=== PATIENT | male | born 1975 | race Caucasian/White ===

== ENCOUNTER 2017-07-01 20:24 | Emergency (ER) | payer MEDICAID, OTHER ==
[~2017-07-01] VITALS: Ht 188 cm; Wt 99.8 kg
[2017-07-01] MEDS ORDERED: LORazepam 2MG/ML-1ML VIAL IV ONE (21:00)
[2017-07-01] MEDS ORDERED: SODIUM CHLORIDE 0.9% 1,000 ML IV ONE ×2 (21:00→23:45)
[2017-07-01 21:18] LABS: Urine Bilirubin Negative (Negative); Urine Blood TRACE /uL (Negative); Urine Color Yellow (Yellow); Urine Glucose Normal (Normal); Urine Ketone 4+ (Negative); Urine Mucus FEW (None Seen); Urine Nitrite Negative (Negative); Urine RBC 54 /hpf (0 - 3); Urine Squamous Epithelial Cell FEW /hpf (<5); Urine Urobilinogen Normal (Negative)
[2017-07-01 21:38] LABS: Basophils # (auto) 0 uL; Basophils % (auto) 0.1 % (0.0-2.0); CONDITION Y; Eosinophils # (auto) 0 uL; Eosinophils % (auto) 0.1 % (0.0-7.0); Hematocrit 46.5 % (41.0-53.0); Hemoglobin 16.3 g/dL (13.5-17.5); Lymphocytes # (auto) 0.6 uL; Mean Corpuscular Hemoglobin 32.4 pg (28.0-32.0); Mean Corpuscular Hgb Conc. 35.1 g/dL (32.0-36.0); Mean Corpuscular Volume 92.4 fL (80.0-100.0); Mean Platelet Volume 8.6 fL (7.4-10.4); Monocytes # (auto) 0.5 uL; Monocytes % (auto) 4.4 % (0.0-12.0); Neutrophils # (auto) 10.3 uL; Neutrophils % (auto) 90.4 % (37.0-80.0); Platelet Count (auto) 191 10^3/uL (140-450); Red Cell Distribution Width 14.2 % (11.6-16.0); White Blood Cell 11.4 10^3/uL (4.4-10.8)
[2017-07-01 21:57] LABS: Amylase 76 U/L (25-115)
[2017-07-01 22:00] LABS: Albumin 3.5 g/dL (3.4-5.0); Calcium 8.1 mg/dL (8.5-10.1); Potassium 4.3 mmol/L (3.5-5.1)
[2017-07-01 22:03] LABS: Bilirubin, Total 1.9 mg/dL (0.2-1.0); Total Protein 7.5 g/dL (6.4-8.2)
[2017-07-01] MEDS ORDERED: MVI in SODIUM CHLORIDE 0.9% 1,010 ML IV ONE (23:38)
[2017-07-01] MEDS ORDERED: THIAMINE HCL 100 MG/ML 2ML VIAL IV ONE (23:45)
[2017-07-01 23:48] VITALS: BP 160/83
[2017-07-02] MEDS ORDERED: ONDANSETRON HCL 4 MG/2 ML VIAL IV ONE (00:30)
[2017-07-02] MEDS ORDERED: LORazepam 2MG/ML-1ML VIAL IV ONE (00:30)
[2017-07-02] MEDS ORDERED: SODIUM CHLORIDE 0.9% 1,000 ML IV ONE (01:30)
[2017-07-02] MEDS ORDERED: PROMETHAZINE HCL 25 MG/ML 1ML IV ONE (01:30)
[2017-07-02] MEDS ORDERED: PANTOPRAZOLE 40 MG/10 ML VIAL IV ONE (02:00)
[2017-07-02] MEDS ORDERED: THIAMINE INJ 100 MG, MULTIPLE VITAMIN 10 ML, FOLIC ACID 1 MG, MAGNESIUM SULF SDV 50% 8 ... IV SCH ×5 (12:00)
== END 2017-07-02 02:45 | disposition home or self-care (01) ==
LOC: EDBD 20:24 → ER 20:37
DX: K85.90 Acute pancreatitis without necrosis or infection, unspecified (principal); N39.0 Urinary tract infection, site not specified; G92 Toxic encephalopathy; F17.210 Nicotine dependence, cigarettes, uncomplicated
CPT/HCPCS: 36415; 74176; 80053; 80307; 80320; 81001; 82150; 83690; 85025; 93005; 96361; 96374; 96375; 96376; 99285; C9113; J2060; J2405; J2550; J3411; J3475

== ENCOUNTER 2020-03-13 17:59 | Inpatient (IN) | payer BC, OTHER ==
[~2020-03-13] VITALS: Ht 188 cm; Wt 95.6 kg
[2020-03-13] MEDS ORDERED: SODIUM CHLORIDE 0.9% 1,000 ML IVB ONE (18:10)
[2020-03-13 18:44] LABS: Basophils # (auto) 0.1 10 ^3/uL (0-0.2); Basophils % (auto) 0.9 % (0.0-2.0); Eosinophils # (auto) 0 10 ^3/uL (0-0.8); Eosinophils % (auto) 0.1 % (0.0-7.0); Hematocrit 51.3 % (41.0-53.0); Hemoglobin 16.9 g/dL (13.5-17.5); Lymphocytes # (auto) 0.5 10 ^3/uL (0.4-5.4); Lymphocytes % (auto) 6.1 % (10.0-50.0); Mean Corpuscular Hemoglobin 29.8 pg (28.0-32.0); Mean Corpuscular Volume 90.4 fL (80.0-100.0); Monocytes # (auto) 0.4 10 ^3/uL (0-1.3); Monocytes % (auto) 4.4 % (0.0-12.0); Neutrophils # (auto) 7.9 10 ^3/uL (1.6-8.6); Neutrophils % (auto) 88.5 % (37.0-80.0); Platelet Count (auto) 321 10^3/uL (140-450); Red Blood Cells 5.68 10^6/uL (4.5-5.90); Red Cell Distribution Width 16.5 % (11.8-14.3)
[2020-03-13 19:05] LABS: Salicylate < 1.7 mg/dL (2.8-20.0)
[2020-03-13 19:06] LABS: Anion Gap 21 (5-15); BUN/Creatinine Ratio 9.4; Blood Urea Nitrogen 13 mg/dL (7-18); Carbon Dioxide 19 mmol/L (21-32); Chloride 100 mmol/L (98-107); GFR African American 71 mL/min; Glucose 131 mg/dL (74-106); Potassium 3.4 mmol/L (3.5-5.1); Sodium 140 mmol/L (136-145)
[2020-03-13 19:07] LABS: Alanine Aminotransferase 57 U/L (16-61); Albumin 4.1 g/dL (3.4-5.0); Aspartate Aminotransferase 66 U/L (15-37); Calcium 8.6 mg/dL (8.5-10.1); GFR Non-African American 59 mL/min; Magnesium 1.8 mg/dL (1.6-2.6)
[2020-03-13 19:10] LABS: Acetaminophen < 2.0 ug/mL (10-30)
[2020-03-13 19:11] LABS: Lactic Acid w/Reflex 9.7 mmol/L (0.4-2.0)
[2020-03-13 19:18] LABS: Alkaline Phosphatase 97 U/L (45-117); Bilirubin, Total 0.4 mg/dL (0.2-1.0); Total Protein 8.5 g/dL (6.4-8.2)
[2020-03-13] MEDS ORDERED: LORazepam 2MG/ML-1ML VIAL IV ONE (20:15)
[2020-03-13] MEDS ORDERED: LACTATED RINGER'S 2,850 ML IV ONE (20:30)
[2020-03-13] MEDS ORDERED: PANTOPRAZOLE 40 MG TAB PO ONE (20:45)
[2020-03-13] MEDS ORDERED: MORPHINE SULF INJ 2 MG/ML SYRINGE 1ML IV PRN (20:45)
[2020-03-13] MEDS ORDERED: MULTIPLE VITAMIN TAB PO ONE (20:45)
[2020-03-13] MEDS ORDERED: FOLIC ACID 1 MG TAB PO ONE (20:45)
[2020-03-13] MEDS ORDERED: NITROGLYCERIN 0.4 MG SL TAB SL PRN (20:45)
[2020-03-13] MEDS ORDERED: HYDROcodone-ACET 5/325MG TAB PO PRN (20:45)
[2020-03-13] MEDS ORDERED: MORPHINE SULFATE 4 MG/ML SYR/VIAL IV PRN (20:45)
[2020-03-13] MEDS ORDERED: ALUM & MAG HYDROX-SIMETH LIQ(MAALOX) 30 ML PO PRN (20:45)
[2020-03-13] MEDS ORDERED: THIAMINE HCL 100 MG TAB PO ONE (20:45)
[2020-03-13] MEDS ORDERED: ONDANSETRON HCL 4 MG/2 ML VIAL IV PRN (20:45)
[2020-03-13] MEDS ORDERED: METOPROLOL TARTRATE 1MG/1ML-5ML VIAL IV ONE (21:00)
[2020-03-13] MEDS: chlordiazePOXIDE HCL 25 MG CAP PO SCH (21:02)
[2020-03-13 22:07] VITALS: BP 127/81
[2020-03-13] MEDS: SOD CHL 0.9%/ KCL 20MEQ 1,000 ML IV SCH (22:28)
--- NOTE | 2020-03-13 22:30 | NUR ---
MS admit from ER EMILY ALMARAZ admitted to tele/MS. Patient oriented to IRENA NEVAREZ RN primary RN, room 0221, bed B, and unit policies regarding patient care. Patient weighed by bed scale and encouraged to call if they need something. Bed locked, in lowest position, call light within reach. All questions and concerns addressed, patient verbalized understanding.
[2020-03-13 23:00] VITALS: BP 127/81
[2020-03-14] MEDS: METOPROLOL TARTRATE 1MG/1ML-5ML VIAL IV SCH ×4 (00:18→18:09)
[2020-03-14] MEDS: LORazepam 0.5 MG TAB PO PRN ×3 (00:38→20:21)
--- NOTE | 2020-03-14 02:12 | NUR ---
ROUNDS Patient is sleeping at this time with no s/s of distress. Will continue care.
[2020-03-14] MEDS: SOD CHL 0.9%/ KCL 20MEQ 1,000 ML IV SCH ×5 (03:56→22:39)
[2020-03-14] MEDS: chlordiazePOXIDE HCL 25 MG CAP PO SCH ×4 (04:33→22:38)
[2020-03-14 05:15] VITALS: BP 100/56
[2020-03-14 06:06] LABS: INR 1.15 (0.9-1.15); Partial Thromboplastin Time 28.4 sec (23.64-32.05)
--- NOTE | 2020-03-14 06:39 | NUR ---
LAB LAB CALLED REGARDING LAB RESULTS. THEY SAID THAT BLOOD RESULTS DECREASED AND THIS CAN POSSIBLY BE DUE TO DRAWING BLOOD FROM THE SAME ARM THE FLUIDS WERE INFUSING AT THAT TIME. LAB WILL COME BACK AND REDRAW TO CONFIRM ACCURACY.
[2020-03-14 07:35] LABS: Basophils # (auto) 0.1 10 ^3/uL (0-0.2); Basophils % (auto) 1.2 % (0.0-2.0); Eosinophils # (auto) 0.1 10 ^3/uL (0-0.8); Eosinophils % (auto) 1.1 % (0.0-7.0); Hematocrit 37.7 % (41.0-53.0); Hemoglobin 12.6 g/dL (13.5-17.5); Lymphocytes # (auto) 1.2 10 ^3/uL (0.4-5.4); Lymphocytes % (auto) 24.3 % (10.0-50.0); Mean Corpuscular Hemoglobin 30.3 pg (28.0-32.0); Mean Corpuscular Hgb Conc. 33.4 g/dL (32.0-36.0); Mean Corpuscular Volume 90.6 fL (80.0-100.0); Monocytes # (auto) 0.7 10 ^3/uL (0-1.3); Monocytes % (auto) 12.9 % (0.0-12.0); Neutrophils # (auto) 3.1 10 ^3/uL (1.6-8.6); Neutrophils % (auto) 60.5 % (37.0-80.0); Platelet Count (auto) 178 10^3/uL (140-450); Red Blood Cells 4.16 10^6/uL (4.5-5.90); Red Cell Distribution Width 16.3 % (11.8-14.3); White Blood Cell 5.1 10^3/uL (4.4-10.8)
[2020-03-14 07:48] LABS: Albumin 2.8 g/dL (3.4-5.0); Calcium 7.6 mg/dL (8.5-10.1); Magnesium 1.7 mg/dL (1.6-2.6); Potassium 3.6 mmol/L (3.5-5.1)
--- NOTE | 2020-03-14 07:50 | NUR ---
Opening Shift Note Assumed care of patient, awake and alert to person, place, time, and situation. No S/S of distress/SOB or pain. Instructed on POC and to call for assist PRN, will continue to monitor for changes Q1hr and PRN.
[2020-03-14 07:53] LABS: BUN/Creatinine Ratio 16.7; Phosphorus 2.3 mg/dL (2.5-4.90); Total Protein 5.8 g/dL (6.4-8.2)
[2020-03-14 08:40] VITALS: BP 119/66
[2020-03-14] MEDS: FLUoxetine HCL 20 MG CAP PO SCH (09:55)
[2020-03-14] MEDS: ENOXAPARIN SOD 40 MG/0.4 ML SYRINGE SC SCH (09:55)
[2020-03-14] MEDS: MULTIPLE VITAMIN TAB PO SCH (09:56)
[2020-03-14] MEDS: THIAMINE HCL 100 MG TAB PO SCH (09:56)
[2020-03-14] MEDS: FOLIC ACID 1 MG TAB PO SCH (09:56)
[2020-03-14] MEDS: PANTOPRAZOLE 40 MG TAB PO SCH (09:57)
--- NOTE | 2020-03-14 11:18 | NUR ---
assessment re: ss consult alcohol dependence Patient is a 44 year old male who is withdrawing from ETOH. Per patients daughter Penny prior to admission patient lived home with family and functioned independently. Per Penny patient has been laid off his job and has no income. Per Penny patient has been drinking for the past 2 to 3 years off and on and has been to rehab a couple of times. Patient has no insurance. Patient has been assessed by Pastor Wharton of [facility]. Patient should qualify for [facility] if all paperwork is brought back in. I have left resources for ETOH at bedside for patient to [place], [facility] and other rehab options for patient. Patient has no other post discharge needs identified at this time. I will continue to monitor patient for discharge needs. Penny verbalized understanding and agreed to discharge plan home. Addendum: 03/14/20 at 1408 by Nayely GODINEZ Amended: Links added.
--- NOTE | 2020-03-14 12:00 | NUR ---
Hospitalist Caroleing at bedside.
[2020-03-14 13:00] VITALS: BP 132/81
[2020-03-14 17:00] VITALS: BP 125/80
[2020-03-14] MEDS: Glucerna Carbsteady SHAKE Vanilla 8oz PO SCH (18:10)
--- NOTE | 2020-03-14 20:00 | NUR ---
Opening Shift Note Assumed care of patient, awake, alert and oriented. No S/S of distress/SOB or pain. Instructed on POC and to call for assist PRN. Bed locked, in lowest position, call light within reach, side rails up x2. Will continue to monitor for changes Q1hr and PRN.
[2020-03-14 22:00] VITALS: BP 139/96
[2020-03-15] MEDS: METOPROLOL TARTRATE 1MG/1ML-5ML VIAL IV SCH ×3 (00:26→12:00)
[2020-03-15] MEDS: SOD CHL 0.9%/ KCL 20MEQ 1,000 ML IV SCH ×3 (04:19→12:30)
[2020-03-15 05:00] VITALS: BP 117/76
[2020-03-15 06:52] LABS: Basophils # (auto) 0 10 ^3/uL (0-0.2); Basophils % (auto) 1.3 % (0.0-2.0); Eosinophils # (auto) 0.1 10 ^3/uL (0-0.8); Eosinophils % (auto) 3.4 % (0.0-7.0); Hematocrit 39.5 % (41.0-53.0); Hemoglobin 13.1 g/dL (13.5-17.5); Lymphocytes % (auto) 29.2 % (10.0-50.0); Mean Corpuscular Hemoglobin 30.4 pg (28.0-32.0); Mean Corpuscular Hgb Conc. 33.3 g/dL (32.0-36.0); Mean Corpuscular Volume 91.5 fL (80.0-100.0); Monocytes # (auto) 0.4 10 ^3/uL (0-1.3); Neutrophils # (auto) 1.9 10 ^3/uL (1.6-8.6); Neutrophils % (auto) 54.1 % (37.0-80.0); Nucleated Red Blood Cells % 0.2 %; Platelet Count (auto) 151 10^3/uL (140-450); Red Blood Cells 4.32 10^6/uL (4.5-5.90); Red Cell Distribution Width 15.9 % (11.8-14.3); White Blood Cell 3.5 10^3/uL (4.4-10.8)
[2020-03-15 07:07] LABS: Calcium 8.1 mg/dL (8.5-10.1); Potassium 3.8 mmol/L (3.5-5.1)
[2020-03-15 07:09] LABS: BUN/Creatinine Ratio 8.9
[2020-03-15] MEDS: Glucerna Carbsteady SHAKE Vanilla 8oz PO SCH ×2 (08:00→12:00)
[2020-03-15 09:00] VITALS: BP 137/95
[2020-03-15] MEDS: PANTOPRAZOLE 40 MG TAB PO SCH (09:52)
[2020-03-15] MEDS: MULTIPLE VITAMIN TAB PO SCH (09:52)
[2020-03-15] MEDS: FLUoxetine HCL 20 MG CAP PO SCH (09:52)
[2020-03-15] MEDS: FOLIC ACID 1 MG TAB PO SCH (09:52)
[2020-03-15] MEDS: THIAMINE HCL 100 MG TAB PO SCH (09:52)
[2020-03-15] MEDS: ENOXAPARIN SOD 40 MG/0.4 ML SYRINGE SC SCH (09:52)
[2020-03-15] MEDS ORDERED: chlordiazePOXIDE HCL 25 MG CAP PO SCH (10:00)
[2020-03-15 13:00] VITALS: BP 123/91
[2020-03-15 13:58] VITALS: BP 137/95
--- NOTE | 2020-03-15 14:03 | NUR ---
No Insurance No PCP Please follow up with your primary care physician within 1-2 weeks of discharge. Per records, you do not have insurance or a primary care provider. An appointment with a doctor was declined. Please follow up at [facility] as needed. Hours of operation are Friday-Friday 8:00 am - 8:00pm. Phone # is [phone] ext. [phone]. [place] [address] [address] [address]. A coupon to Urgent Care has been provided. You can also follow up at these other facilities: [place] [address] [address] [address]. Phone # is [phone]. [facility] [address] at [address] [place] [address]. Phone # is [phone]. Please contact the [employer] and [facility] group sales representative for assistance and choosing a primary care physician. Contact information for both personnel has been provided. Addendum: 03/15/20 at 1405 by Mikki Lerma RN Amended: Links added.
--- NOTE | 2020-03-15 15:30 | NUR ---
PT EDUCATED ON LIBRIUM AND IS AWARE THAT HE CAN'T DRIVE FOR 6 HOURS AFTER TAKING A DOSE OF LIBRIUM DUE TO ITS SIDE EFFECT OF DROWSINESS. PT VERBALIZED UNDERSTANDING.
--- NOTE | 2020-03-15 15:39 | NUR ---
Discharge instructions given as ordered. Encourage to follow up with PMD as instructed. All questions and concerns addressed. Patient verbalized understanding. Medication reconciliation form completed and copy given to patient. IV removed with catheter intact, pressure dressing applied. Telemetry unit returned to ICU. Patient REFUSED wheelchair, LEFT with all OF personal belongings, accompanied by staff . No distress noted at time of departure.
[2020-03-16] MEDS ORDERED: chlordiazePOXIDE HCL 25 MG CAP PO SCH (07:00)
== END 2020-03-15 15:45 | disposition home or self-care (01) | DRG 896 ==
LOC: EDBD 17:59 → ER 17:59 → TELE 18:00 → TELE-CENTR 21:41
PROVIDERS: ADMIT Hospitalist; ATTEND Internal Medicine
DX: F10.231 Alcohol dependence with withdrawal delirium (principal); N17.0 Acute kidney failure with tubular necrosis; G92 Toxic encephalopathy; I47.1 Supraventricular tachycardia; E44.0 Moderate protein-calorie malnutrition; F17.210 Nicotine dependence, cigarettes, uncomplicated; E87.6 Hypokalemia; F32.9 Major depressive disorder, single episode, unspecified; N18.9 Chronic kidney disease, unspecified; E86.0 Dehydration; Z79.899 Other long term (current) drug therapy; Z68.27 Body mass index [BMI] 27.0-27.9, adult
CPT/HCPCS: 36415; 36600; 70450; 71045; 74176; 80048; 80053; 80061; 80320; 80329; 82550; 82805; 83036; 83605; 83735; 83880; 84100; 84443; 84484; 85025; 85610; 85730; 87040; 93005; 96361; 96365; 96375; G0378; J2405